=== PATIENT | male | born 1990 | race Caucasian/White ===

== ENCOUNTER 2017-07-11 20:38 | Emergency (ER) | payer OTHER ==
[~2017-07-11] VITALS: Ht 182.9 cm; Wt 86.2 kg
[2017-07-11 20:46] VITALS: BP 137/74
[2017-07-11] MEDS ORDERED: LORAZEPAM INJ 2 MG/ML VIAL ONE (21:09)
[2017-07-11] MEDS ORDERED: LORAZEPAM INJ 2 MG/ML VIAL IM ONE (21:30)
[2017-07-11] MEDS ORDERED: LORAZEPAM 1 MG TABLET PO ONE (21:30)
== END 2017-07-11 21:50 | disposition home or self-care (01) ==
LOC: ER 20:43
DX: F41.0 Panic disorder [episodic paroxysmal anxiety] (principal)
CPT/HCPCS: 96372; 99284; A4606; J2060; Z7610